=== PATIENT | male | born 1980 | race Two or more races ===

== ENCOUNTER 2018-12-29 03:55 | Emergency (ER) | payer SELFPAY ==
[~2018-12-29] VITALS: Ht 180.3 cm; Wt 122.5 kg
[2018-12-29] MEDS ORDERED: LORazepam 2MG/ML-1ML VIAL IV ONE (04:00)
[2018-12-29] MEDS ORDERED: LORazepam 2MG/ML-1ML VIAL ONE (04:00)
[2018-12-29 04:21] LABS: Basophils # (auto) 0 uL; Basophils % (auto) 0.3 % (0.0-2.0); Eosinophils # (auto) 0.2 uL; Monocytes # (auto) 0.5 uL; Neutrophils # (auto) 6.2 uL; Nucleated Red Blood Cells % 0.2 %
[2018-12-29 04:23] LABS: Eosinophils % (auto) 1.4 % (0.0-7.0); Hematocrit 48.5 % (41.0-53.0); Hemoglobin 16.4 g/dL (13.5-17.5); Lymphocytes # (auto) 4.1 uL; Lymphocytes % (auto) 37.5 % (10.0-50.0); Mean Corpuscular Hemoglobin 27.5 pg (28.0-32.0); Mean Corpuscular Hgb Conc. 33.8 g/dL (32.0-36.0); Mean Corpuscular Volume 81.4 fL (80.0-100.0); Monocytes % (auto) 4.6 % (0.0-12.0); Neutrophils % (auto) 56.2 % (37.0-80.0); Platelet Count (auto) 351 10^3/uL (140-450); Red Blood Cells 5.95 10^6/uL (4.5-5.90); Red Cell Distribution Width 13.3 % (11.8-14.3)
[2018-12-29 04:42] LABS: Anion Gap 12 (5-15); Calcium 8.5 mg/dL (8.5-10.1); Carbon Dioxide 19 mmol/L (21-32); Chloride 109 mmol/L (98-107); Glucose 173 mg/dL (74-106); Magnesium 2.6 mg/dL (1.6-2.6); Potassium 3.4 mmol/L (3.5-5.1); Sodium 140 mmol/L (136-145)
[2018-12-29 04:48] LABS: Salicylate < 1.7 mg/dL (2.8-20.0)
[2018-12-29 04:49] LABS: Acetaminophen < 2.0 ug/mL (10-30)
[2018-12-29 04:50] LABS: Alanine Aminotransferase 132 U/L (16-61); Alkaline Phosphatase 107 U/L (45-117); Aspartate Aminotransferase 69 U/L (15-37); Bilirubin, Total 0.4 mg/dL (0.2-1.0); Blood Alcohol < 3.0 mg/dL (0-5); Blood Urea Nitrogen 13 mg/dL (7-18); GFR African American 80 mL/min; GFR Non-African American 66 mL/min; Total Protein 7.9 g/dL (6.4-8.2)
[2018-12-29 05:06] LABS: Urine Bacteria FEW /hpf (None Seen); Urine Blood 1+ /uL (Negative); Urine Mucus FEW (None Seen); Urine Specific Gravity 1.014 (1.001-1.035); Urine WBC 1 /hpf (0 - 3)
[2018-12-29 05:17] LABS: Alcohol, Urine < 3.0 mg/dL (0-5); Amphetamine Screen, Urine NEGATIVE (NEGATIVE); Barbiturate Scree,Urine NEGATIVE (NEGATIVE); Benzodiazephine Screen, Urine POSITIVE (NEGATIVE); Cannabinoid Screen, Urine NEGATIVE (NEGATIVE); Cocaine Screen, Urine NEGATIVE (NEGATIVE); Opiate Scree,Urine NEGATIVE (NEGATIVE); Phencyclidine Screen, Urine NEGATIVE (NEGATIVE)
[2018-12-29 08:00] VITALS: BP 135/80
== END 2018-12-29 09:48 | disposition home or self-care (01) ==
LOC: EDBD 03:55 → ER 03:59
DX: R56.9 Unspecified convulsions (principal)
CPT/HCPCS: 36415; 70450; 71045; 80053; 80307; 80320; 80329; 81001; 82542; 82962; 83735; 84484; 85025; 93005; 96374; 99284; J2060

== ENCOUNTER 2020-07-10 02:54 | Emergency (ER) | payer BC ==
[~2020-07-10] VITALS: Ht 185.4 cm; Wt 136.1 kg
[2020-07-10 03:51] LABS: Basophils # (auto) 0 10 ^3/uL (0-0.2); Basophils % (auto) 0.4 % (0.0-2.0); Eosinophils # (auto) 0.1 10 ^3/uL (0-0.8); Eosinophils % (auto) 1.7 % (0.0-7.0); Hematocrit 46.7 % (41.0-53.0); Lymphocytes # (auto) 1.8 10 ^3/uL (0.4-5.4); Lymphocytes % (auto) 21.4 % (10.0-50.0); Mean Corpuscular Hemoglobin 27.9 pg (28.0-32.0); Mean Corpuscular Hgb Conc. 34.3 g/dL (32.0-36.0); Mean Corpuscular Volume 81.3 fL (80.0-100.0); Monocytes # (auto) 0.4 10 ^3/uL (0-1.3); Monocytes % (auto) 5.2 % (0.0-12.0); Neutrophils # (auto) 6.1 10 ^3/uL (1.6-8.6); Neutrophils % (auto) 71.3 % (37.0-80.0); Nucleated Red Blood Cells % 0.1 %; Platelet Count (auto) 281 10^3/uL (140-450); Red Blood Cells 5.75 10^6/uL (4.5-5.90); Red Cell Distribution Width 13.5 % (11.8-14.3); White Blood Cell 8.6 10^3/uL (4.4-10.8)
[2020-07-10 04:08] LABS: Albumin 3.7 g/dL (3.4-5.0); Calcium 8.4 mg/dL (8.5-10.1); Potassium 3.3 mmol/L (3.5-5.1)
[2020-07-10 04:12] LABS: BUN/Creatinine Ratio 8.9; Bilirubin, Total 0.3 mg/dL (0.2-1.0)
[2020-07-10] MEDS ORDERED: levETIRAcetam 500 MG/5ML INJ IV ONE (04:17)
[2020-07-10 06:00] VITALS: BP 115/73
== END 2020-07-10 06:45 | disposition home or self-care (01) ==
LOC: EDBD 02:54 → ER 03:03
DX: S00.83XA Contusion of other part of head, initial encounter (principal); S00.33XA Contusion of nose, initial encounter; S00.512A Abrasion of oral cavity, initial encounter; R56.9 Unspecified convulsions; R41.82 Altered mental status, unspecified; X58.XXXA Exposure to other specified factors, initial encounter; Y93.89 Activity, other specified; Y92.89 Other specified places as the place of occurrence of the external cause; Y99.8 Other external cause status
CPT/HCPCS: 36415; 70450; 80053; 85025; 96365; 99284; J1953; J7060

== ENCOUNTER 2020-07-15 23:20 | Emergency (ER) | payer BC ==
[~2020-07-15] VITALS: Ht 170.2 cm; Wt 120.2 kg
[2020-07-16] MEDS ORDERED: ACETAMINOPHEN 325 MG TAB PO ONE (00:30)
[2020-07-16 00:45] LABS: Basophils # (auto) 0 10 ^3/uL (0-0.2); Basophils % (auto) 0.7 % (0.0-2.0); Eosinophils # (auto) 0 10 ^3/uL (0-0.8); Eosinophils % (auto) 0.2 % (0.0-7.0); Hematocrit 46.9 % (41.0-53.0); Lymphocytes # (auto) 1.3 10 ^3/uL (0.4-5.4); Lymphocytes % (auto) 22.5 % (10.0-50.0); Mean Corpuscular Hemoglobin 27.7 pg (28.0-32.0); Mean Corpuscular Hgb Conc. 34.1 g/dL (32.0-36.0); Mean Corpuscular Volume 81.2 fL (80.0-100.0); Monocytes # (auto) 0.7 10 ^3/uL (0-1.3); Neutrophils # (auto) 3.6 10 ^3/uL (1.6-8.6); Neutrophils % (auto) 63.6 % (37.0-80.0); Nucleated Red Blood Cells % 0.1 %; Platelet Count (auto) 236 10^3/uL (140-450); Red Blood Cells 5.78 10^6/uL (4.5-5.90); Red Cell Distribution Width 13.5 % (11.8-14.3); White Blood Cell 5.6 10^3/uL (4.4-10.8)
[2020-07-16 01:02] LABS: Alanine Aminotransferase 182 U/L (16-61); Albumin 3.8 g/dL (3.4-5.0); Anion Gap 6 (5-15); Aspartate Aminotransferase 101 U/L (15-37); BUN/Creatinine Ratio 7.6; Blood Urea Nitrogen 11 mg/dL (7-18); Calcium 8.6 mg/dL (8.5-10.1); Carbon Dioxide 27 mmol/L (21-32); Chloride 103 mmol/L (98-107); GFR African American 71 mL/min; GFR Non-African American 58 mL/min; Glucose 107 mg/dL (74-106); INR 0.95 (0.9-1.15); Partial Thromboplastin Time 32.3 sec (23.0-31.2); Potassium 3.8 mmol/L (3.5-5.1); Sodium 136 mmol/L (136-145)
[2020-07-16 01:07] LABS: Alkaline Phosphatase 121 U/L (45-117); Bilirubin, Total 0.6 mg/dL (0.2-1.0); Creatine Kinase IFCC 264 U/L (39-308); Total Protein 8.2 g/dL (6.4-8.2)
[2020-07-16 04:25] VITALS: BP 142/89
== END 2020-07-16 04:28 | disposition home or self-care (01) ==
LOC: ER 23:21
DX: U07.1 COVID-19 (principal); J01.00 Acute maxillary sinusitis, unspecified
CPT/HCPCS: 36415; 71045; 80053; 82550; 82728; 83735; 83880; 84484; 85025; 85379; 85610; 85730; 87426